=== PATIENT | male | born 2000 | race Caucasian/White ===

== ENCOUNTER 2020-08-19 13:05 | Emergency (ER) | payer OTHER ==
[~2020-08-19] VITALS: Ht 185.4 cm; Wt 90.7 kg
[~2020-08-19 13:05] MED LIST: IBU-4400 MG PO
[2020-08-19 13:17] VITALS: BP 133/76
== END 2020-08-19 13:42 | disposition home or self-care (01) ==
LOC: ED 13:05
DX: S61.210A Laceration without foreign body of right index finger without damage to nail, initial encounter (principal); W26.0XXA Contact with knife, initial encounter; Y93.89 Activity, other specified; Y92.89 Other specified places as the place of occurrence of the external cause; Y99.8 Other external cause status

== ENCOUNTER 2021-10-24 10:24 | Emergency (ER) | payer OTHER ==
[~2021-10-24] VITALS: Ht 185.4 cm
[2021-10-24 10:35] VITALS: BP 128/86
== END 2021-10-24 12:02 | disposition home or self-care (01) ==
LOC: ED 10:24
DX: H16.131 Photokeratitis, right eye (principal)

== ENCOUNTER → 2023-02-03 | Outpatient (CLI) | payer OTHER | END | disposition home or self-care (01) | LOC: WOUNDCARE 12:41 | PROVIDERS: ATTEND Nurse Practitioner Family | DX: T87.89 Other complications of amputation stump (principal); S91.302A Unspecified open wound, left foot, initial encounter; S81.801A Unspecified open wound, right lower leg, initial encounter; X58.XXXA Exposure to other specified factors, initial encounter; Y93.89 Activity, other specified; Y92.89 Other specified places as the place of occurrence of the external cause; Y99.8 Other external cause status; Y83.5 Amputation of limb(s) as the cause of abnormal reaction of the patient, or of later complication, without mention of misadventure at the time of the procedure ==

== ENCOUNTER → 2023-02-11 | Outpatient (CLI) | payer OTHER | LOC: WOUNDCARE 03:22 | PROVIDERS: ATTEND Nurse Practitioner Family | DX: T87.81 Dehiscence of amputation stump (principal); S81.801D Unspecified open wound, right lower leg, subsequent encounter; S91.302D Unspecified open wound, left foot, subsequent encounter; S87.82XD Crushing injury of left lower leg, subsequent encounter; X58.XXXD Exposure to other specified factors, subsequent encounter; Y83.5 Amputation of limb(s) as the cause of abnormal reaction of the patient, or of later complication, without mention of misadventure at the time of the procedure ==

== ENCOUNTER → 2023-02-19 | Outpatient (CLI) | payer OTHER | END | disposition home or self-care (01) | LOC: WOUNDCARE 01:15 | PROVIDERS: ATTEND Nurse Practitioner Family | DX: T87.89 Other complications of amputation stump (principal); S99.922D Unspecified injury of left foot, subsequent encounter; S87.81XD Crushing injury of right lower leg, subsequent encounter; S87.82XD Crushing injury of left lower leg, subsequent encounter; X58.XXXD Exposure to other specified factors, subsequent encounter; Y83.5 Amputation of limb(s) as the cause of abnormal reaction of the patient, or of later complication, without mention of misadventure at the time of the procedure ==

== ENCOUNTER → 2023-02-24 | Outpatient (CLI) | payer OTHER | END | disposition home or self-care (01) | LOC: WOUNDCARE 01:30 | PROVIDERS: ATTEND Nurse Practitioner Family | DX: T87.89 Other complications of amputation stump (principal); S81.801D Unspecified open wound, right lower leg, subsequent encounter; S91.302D Unspecified open wound, left foot, subsequent encounter; S87.82XD Crushing injury of left lower leg, subsequent encounter; S87.81XD Crushing injury of right lower leg, subsequent encounter; X58.XXXD Exposure to other specified factors, subsequent encounter; Y83.5 Amputation of limb(s) as the cause of abnormal reaction of the patient, or of later complication, without mention of misadventure at the time of the procedure ==

== ENCOUNTER → 2023-02-26 | Outpatient (CLI) | payer OTHER | END | disposition home or self-care (01) | LOC: WOUNDCARE 00:27 | PROVIDERS: ATTEND Nurse Practitioner Family | DX: T87.89 Other complications of amputation stump (principal); S81.801D Unspecified open wound, right lower leg, subsequent encounter; S91.302D Unspecified open wound, left foot, subsequent encounter; S87.82XD Crushing injury of left lower leg, subsequent encounter; X58.XXXD Exposure to other specified factors, subsequent encounter; Y83.5 Amputation of limb(s) as the cause of abnormal reaction of the patient, or of later complication, without mention of misadventure at the time of the procedure ==